=== PATIENT | female | born 1940 | race Caucasian/White ===

== ENCOUNTER → 2021-10-19 | Outpatient (CLI) | payer MEDICARE, OTHER ==
[~2021-10-19] MED LIST: ADV500INH INH; ALBU8.5H INH; FLUT1BLS6 INH; HYDR-3911 PO; HYDR12.55 PO; LEVO75TA4 PO; MECL-86 PO; MEMA1TAB3 PO; OMEP40CA5 PO; RANO500T2 PO; SPIR1CAP INH; VALS1TAB67 PO
== END ==
LOC: M CARPUL 13:44
PROVIDERS: ATTEND Internal Medicine Pulmonary Disease
DX: R91.8 Other nonspecific abnormal finding of lung field (principal)

== ENCOUNTER → 2021-11-04 | Outpatient (CLI) | payer MEDICARE, OTHER ==
[~2021-11-04] MED LIST changes: -ADV500INH INH; +HOME MED LIST COMPLETE! XX SCH; +LIDOCAINE 1% MDV 20ML VIAL As Ordered ONE; +OMEP-221 PO; -OMEP40CA5 PO
[2021-11-04 12:30] VITALS: BP 140/60
== END ==
LOC: M IRPRO 08:29
PROVIDERS: ATTEND Internal Medicine Pulmonary Disease
DX: C34.91 Malignant neoplasm of unspecified part of right bronchus or lung (principal)

== ENCOUNTER → 2021-11-29 | Outpatient (CLI) | payer MEDICARE, OTHER ==
[~2021-11-29] MED LIST changes: +ADV500INH INH; -HOME MED LIST COMPLETE! XX SCH; -LIDOCAINE 1% MDV 20ML VIAL As Ordered ONE; -OMEP-221 PO; +OMEP40CA5 PO
== END ==
LOC: M ONCR 12:28
PROVIDERS: ATTEND General Practice
DX: C34.11 Malignant neoplasm of upper lobe, right bronchus or lung (principal); J44.9 Chronic obstructive pulmonary disease, unspecified; I10 Essential (primary) hypertension; Z87.891 Personal history of nicotine dependence; Z79.899 Other long term (current) drug therapy

== ENCOUNTER 2021-12-20 07:15 | Outpatient (RCR) | payer MEDICARE, OTHER | END 2021-12-26 | LOC: M ONCR 07:15 | PROVIDERS: ATTEND General Practice | DX: C34.11 Malignant neoplasm of upper lobe, right bronchus or lung (principal) ==

== ENCOUNTER 2022-01-06 12:11 | Outpatient (RCR) | payer MEDICARE, OTHER | END 2022-01-26 | LOC: M ONCR 12:11 | PROVIDERS: ATTEND General Practice | DX: C34.11 Malignant neoplasm of upper lobe, right bronchus or lung (principal) ==

== ENCOUNTER → 2022-04-18 | Outpatient (CLI) | payer MEDICARE, OTHER | LOC: M ONCR 10:57 | PROVIDERS: ATTEND General Practice | DX: C34.11 Malignant neoplasm of upper lobe, right bronchus or lung (principal); R05.9 Cough, unspecified; L65.9 Nonscarring hair loss, unspecified; Z79.51 Long term (current) use of inhaled steroids; Z86.16 Personal history of COVID-19; Z87.891 Personal history of nicotine dependence; Z92.3 Personal history of irradiation ==